=== PATIENT | male | born 2000 | race Caucasian/White ===

== ENCOUNTER 2021-02-16 16:21 | Emergency (ER) | payer OTHER ==
[~2021-02-16] VITALS: Ht 177.8 cm; Wt 95.0 kg
[2021-02-16 16:34] VITALS: BP 131/61
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
[2021-02-16] MEDS ORDERED: KETOROLAC 15 MG/ML VIAL. IM ONE (18:15)
[2021-02-16] MEDS ORDERED: KETOROLAC 15 MG/ML VIAL. ONE (18:32)
== END 2021-02-16 18:50 | disposition home or self-care (01) ==
LOC: ER 16:21
DX: R51.9 Headache, unspecified (principal); M54.2 Cervicalgia; Y08.89XA Assault by other specified means, initial encounter; Y93.89 Activity, other specified; Y92.148 Other place in prison as the place of occurrence of the external cause; Y99.0 Civilian activity done for income or pay
CPT/HCPCS: 70450; 70486; 72125; 96372; 99285; J1885